=== PATIENT | male | born 1990 | race Caucasian/White ===

== ENCOUNTER 2021-07-27 01:57 | Emergency (ER) | payer BC, MEDICAID, OTHER ==
[~2021-07-27] VITALS: Ht 180.3 cm; Wt 86.4 kg
[~2021-07-27 01:57] MED LIST: HTN MED; IBUP-1984 PO
[2021-07-27 02:27] VITALS: BP 144/91
[2021-07-27] MEDS ORDERED: TETanus/Pertussis (Acell)/Diphther VAC/PF (Tdap-Adult) 0.5ml syringe IMVAC ONE (02:45)
[2021-07-27] MEDS ORDERED: LIDOcaine 1% 30ml preserv. free vial IJ ONE (03:15)
[2021-07-27] MEDS ORDERED: ibuprofen tablet 400 MG TABLET PO ONE (03:40)
[2021-07-27] MEDS ORDERED: HYDR-3965 PO (03:59)
== END 2021-07-27 05:15 | disposition home or self-care (01) ==
LOC: ER 01:57
DX: S01.111A Laceration without foreign body of right eyelid and periocular area, initial encounter (principal); S09.8XXA Other specified injuries of head, initial encounter; Z79.899 Other long term (current) drug therapy; Z72.89 Other problems related to lifestyle; W19.XXXA Unspecified fall, initial encounter; Y93.89 Activity, other specified; Y92.89 Other specified places as the place of occurrence of the external cause; Y99.8 Other external cause status
CPT/HCPCS: 12013; 70450; 70486; 72125; 90471; 90715; 99285

== ENCOUNTER 2021-07-30 14:57 | Emergency (ER) | payer BC ==
[~2021-07-30] VITALS: Ht 180.3 cm; Wt 92.6 kg
[~2021-07-30 14:57] MED LIST changes: +HYDR-3965 PO
[2021-07-30 15:35] VITALS: BP 163/98
[2021-07-30] MEDS ORDERED: ONDA4TAB6 PO (15:42)
== END 2021-07-30 15:53 | disposition home or self-care (01) ==
LOC: ER 14:57
DX: F07.81 Postconcussional syndrome (principal)
CPT/HCPCS: 99283

== ENCOUNTER 2021-08-03 10:02 | Emergency (ER) | payer BC ==
[~2021-08-03] VITALS: Ht 180.3 cm; Wt 76.5 kg
[~2021-08-03 10:02] MED LIST changes: +ONDA4TAB6 PO
[2021-08-03 10:29] VITALS: BP 126/84
[2021-08-03] MEDS ORDERED: ONDA4TAB6 PO (11:24)
== END 2021-08-03 11:27 | disposition home or self-care (01) ==
LOC: ER 10:03
DX: S01.111D Laceration without foreign body of right eyelid and periocular area, subsequent encounter (principal); Z48.00 Encounter for change or removal of nonsurgical wound dressing; X58.XXXD Exposure to other specified factors, subsequent encounter
CPT/HCPCS: 99283

== ENCOUNTER 2023-01-20 15:34 | Inpatient (IN) | payer BC ==
[~2023-01-20] VITALS: Ht 172.7 cm; Wt 121.7 kg
[~2023-01-20 15:34] MED LIST changes: -HYDR-3965 PO
[2023-01-20] MEDS ORDERED: levetiracetam inj 1,000 MG in normal saline 100ml IV soln 100 ML IV STA (15:54)
[2023-01-20] MEDS ORDERED: normal saline 1000ML IV soln IV ONE (15:55)
[2023-01-20] MEDS ORDERED: LORazepam 2 mg/ml vial IV ONE ×3 (15:55→17:55)
[2023-01-20] MEDS ORDERED: thiamine 100mg/ml 2ml inj. IV ONE (15:55)
[2023-01-20] MEDS ORDERED: folic acid 1mg/0.2ml inj IV ONE (15:55)
[2023-01-20] MEDS ORDERED: magnesium 2GM in 50ml NS 50 ML IV ONE (15:55)
[2023-01-20] MEDS ORDERED: cloNIDine 0.1 mg tablet PO ONE (16:10)
[2023-01-20 16:14] LABS: BASOPHILS # (AUTO) 0.1 X10'3 (0-0.2); BASOPHILS % (AUTO) 0.6 % (0-1); EOSINOPHILS % (AUTO) 0.1 % (0-6); HEMATOCRIT 51.2 % (42.0-52.0); HEMOGLOBIN 17.9 g/dl (14.0-17.9); LYMPHOCYTES # (AUTO) 0.6 X10'3 (1.1-4.8); LYMPHOCYTES % (AUTO) 7.2 % (21-51); MEAN CORPUSCULAR VOLUME 96.9 FL (78-98); MEAN PLATELET VOLUME 9.1 FL (7.4-10.4); MONOCYTES # (AUTO) 0.7 X10'3 (0-0.9); NEUTROPHILS # (AUTO) 6.9 X10'3 (1.8-7.7); NEUTROPHILS % (AUTO) 84.1 % (42-75); PLATELET COUNT 53 X10'3 (140-440); RED BLOOD COUNT 5.28 X10'6 (4.70-6.10); RED CELL DISTRIBUTION WIDTH 13.1 % (11.5-14.5); WHITE BLOOD COUNT 8.2 X10'3 (4.5-11.0)
[2023-01-20 16:34] LABS: ANION GAP 21 (8-16); BILIRUBIN,TOTAL 2.7 MG/DL (0.1-1.0); BLOOD UREA NITROGEN 5 MG/DL (7-18); BUN/CREATININE RATIO 3.9 (5.4-32.0); CALCIUM 9.7 MG/DL (8.5-10.1); CHLORIDE 84 MMOL/L (99-107); CREATININE 1.28 MG/DL (0.60-1.10); GLUCOSE 146 MG/DL (70-104); MAGNESIUM 1.4 MG/DL (1.5-2.4); POTASSIUM 3.1 MMOL/L (3.5-5.1); SODIUM 126 MMOL/L (135-145); TOTAL CARBON DIOXIDE 20.8 MMOL/L (24-32); eGFR 65 ML/MIN
[2023-01-20 16:35] LABS: ALANINE AMINOTRANSFERASE 87 U/L (12-78); ALKALINE PHOSPHATASE 118 IU/L (46-116); ASPARTATE AMINO TRANSFERASE 256 U/L (10-37); CREATINE KINASE 764 U/L (39-308); TOTAL PROTEIN 8.1 G/DL (6.4-8.2)
[2023-01-20] MEDS ORDERED: MELA1TAB52 PO (16:54)
[2023-01-20] MEDS ORDERED: IBUP-1985 PO (16:55)
[2023-01-20] MEDS ORDERED: ONDA4TAB12 PO (16:56)
[2023-01-20 16:57] LABS: ETHANOL < 0.010 GM/DL (0.0-0.010)
[2023-01-20] MEDS ORDERED: potassium CL 10mEq/100ml bag 100 ML IV SCH (17:05)
[2023-01-20] MEDS ORDERED: morphine 2 MG/ML inj. syringe IV PRN ×2 (17:55)
[2023-01-20] MEDS ORDERED: ondansetron/PF 4mg/2ml inj IV PRN (17:55)
[2023-01-20] MEDS ORDERED: cyclobenzaprine 10mg tablet PO PRN (17:55)
[2023-01-20] MEDS ORDERED: magnesium hydroxide 30ml (MOM) UD suspension PO PRN (17:55)
[2023-01-20] MEDS ORDERED: mag hydrox/Alum hydrox/simeth 30ml oral suspension PO PRN ×2 (17:55)
[2023-01-20] MEDS ORDERED: dextrose 50%-water 50ml dispensing syringe IV PRN (17:55)
[2023-01-20] MEDS ORDERED: acetaminophen 325mg tablet PO PRN ×2 (17:55)
[2023-01-20] MEDS ORDERED: dicyclomine 10 MG capsule PO PRN (17:55)
[2023-01-20] MEDS ORDERED: HYDROcodone/acetaminophen 5mg/325mg tablet PO PRN (17:55)
[2023-01-20] MEDS ORDERED: metoclopramide 5 mg/ml inj IV PRN (17:55)
[2023-01-20] MEDS ORDERED: HYDROcodone/acetaminophen 10/325mg tab PO PRN (17:55)
[2023-01-20] MEDS ORDERED: Potassium Cl 40 MEQ in sodium chloride 0.45% 500 ML IV ONE (18:05)
[2023-01-20 18:32] LABS: PHOSPHORUS 1.3 MG/DL (2.3-4.5)
--- NOTE | 2023-01-20 19:07 | NUR ---
[facility]. [phone]
--- NOTE | 2023-01-20 19:14 | NUR ---
[facility]. [phone]
[2023-01-20] MEDS: docusate sod 100mg capsule PO SCH (20:00)
[2023-01-20] MEDS: dextrose 5%-1/2 normal saline 1,000 ML IV SCH (20:50)
[2023-01-20] MEDS: thiamine 100mg/ml 2ml inj. IV SCH (21:37)
[2023-01-20] MEDS: LORazepam 2 mg/ml vial IV PRN (21:42)
--- NOTE | 2023-01-20 22:06 | NUR ---
spoke with patients mom and gave her update. pt fiance at bedside. Ativan given for anxiety. IVF infusing.
[2023-01-21] MEDS: LORazepam 2 mg/ml vial IV PRN ×2 (03:14→22:36)
--- NOTE | 2023-01-21 03:17 | NUR ---
Pt awake and feeling anxious. Ativan 2mg IV given. Pt states he is feeling better. Not sweating as much.
[2023-01-21 03:41] LABS: BASOPHILS % (AUTO) 0.8 % (0-1); EOSINOPHILS # (AUTO) 0.1 X10'3 (0-0.9); EOSINOPHILS % (AUTO) 1.2 % (0-6); HEMATOCRIT 40.2 % (42.0-52.0); HEMOGLOBIN 13.7 g/dl (14.0-17.9); LYMPHOCYTES # (AUTO) 0.6 X10'3 (1.1-4.8); MEAN CORPUSCULAR HEMOGLOBIN 33.3 PG (27.0-31.0); MEAN CORPUSCULAR HGB CONC 33.9 g/dL (33.0-36.5); MEAN PLATELET VOLUME 10.9 FL (7.4-10.4); MONOCYTES # (AUTO) 0.5 X10'3 (0-0.9); MONOCYTES % (AUTO) 9.3 % (2-12); NEUTROPHILS # (AUTO) 4.1 X10'3 (1.8-7.7); NEUTROPHILS % (AUTO) 76.7 % (42-75); PLATELET COUNT 52 X10'3 (140-440); RED BLOOD COUNT 4.11 X10'6 (4.70-6.10); RED CELL DISTRIBUTION WIDTH 13.3 % (11.5-14.5); WHITE BLOOD COUNT 5.4 X10'3 (4.5-11.0)
[2023-01-21 03:49] LABS: ALANINE AMINOTRANSFERASE 62 U/L (12-78); ALBUMIN 2.9 G/DL (3.4-5.0); ALBUMIN/GLOBULIN RATIO 0.9 (1.1-1.5); ALKALINE PHOSPHATASE 82 IU/L (46-116); ANION GAP 8 (8-16); ASPARTATE AMINO TRANSFERASE 156 U/L (10-37); BILIRUBIN,TOTAL 1.9 MG/DL (0.1-1.0); BLOOD UREA NITROGEN 5 MG/DL (7-18); BUN/CREATININE RATIO 7.8 (5.4-32.0); CALCIUM 8.1 MG/DL (8.5-10.1); CHLORIDE 98 MMOL/L (99-107); CREATININE 0.64 MG/DL (0.60-1.10); GLUCOSE 95 MG/DL (70-104); SODIUM 134 MMOL/L (135-145); TOTAL CARBON DIOXIDE 27.7 MMOL/L (24-32); TOTAL PROTEIN 6.1 G/DL (6.4-8.2); eGFR > 90 ML/MIN
[2023-01-21 03:53] LABS: POTASSIUM 2.9 MMOL/L (3.5-5.1)
[2023-01-21] MEDS: dextrose 5%-1/2 normal saline 1,000 ML IV SCH ×3 (03:55→23:55)
--- NOTE | 2023-01-21 04:00 | NUR ---
Critical potassium. Dr. Alexei cedeno.
[2023-01-21 04:15] LABS: PLATELET ESTIMATE DECREASED
[2023-01-21 04:17] LABS: LARGE PLATELETS FEW
--- NOTE | 2023-01-21 04:30 | NUR ---
Second page sent to Dr. Linda about the potassium level.
[2023-01-21] MEDS ORDERED: potassium Cl 20 mEq SR tablet PO PRN (04:40)
[2023-01-21] MEDS ORDERED: potassium Cl 40MEQ/1/2NS 520ml 520 ML IV PRN (04:40)
[2023-01-21] MEDS ORDERED: magnesium Cl slow-release 64mg tablet PO PRN (04:40)
[2023-01-21] MEDS ORDERED: magnesium 4gm in 100ml NS 100 ML IV PRN (04:40)
[2023-01-21] MEDS: potassium Cl 20 mEq SR tablet PO PRN (04:50)
--- NOTE | 2023-01-21 04:52 | NUR ---
Dr. Linda ordered Potassium replacement protocol. 40mEq potassium given PO.
[2023-01-21 06:14] LABS: MAGNESIUM 1.7 MG/DL (1.5-2.4)
--- NOTE | 2023-01-21 07:29 | NUR ---
pt lying in bed. pt's girlfriend at bedside. pt a+ox4. pt is forgetful and keeps removing o2 sat. pt compliant with request and follows commands. currently, denies itching, nausea, hallucinations, no tremors present
[2023-01-21] MEDS: thiamine 100mg/ml 2ml inj. IV SCH ×3 (07:46→20:26)
[2023-01-21] MEDS: docusate sod 100mg capsule PO SCH ×2 (08:00→20:00)
[2023-01-21] MEDS: folic acid 1mg/0.2ml inj IV SCH (09:23)
--- NOTE | 2023-01-21 09:33 | NUR ---
PT AMBUALTED WITH NURSING. PT VERY UNSTEADY WHILE WALKING. PT'S GIRLFRIEND ASKED TO GO WITH PT TO RESTROOM. PT'S GIRLFRIEND AGREES TO GO WITH PT.
[2023-01-21 18:51] VITALS: BP 155/104
[2023-01-21] MEDS: K and/or MAG REPLACEMENT MC SCH ×2 (20:00→20:24)
[2023-01-21] MEDS: Neutra Phos packet PO SCH (20:26)
[2023-01-21 21:16] LABS: CLARITY,URINE CLEAR (Clear); COLOR,URINE YELLOW (Yellow); GLUCOSE, URINE NEGATIVE (Neg); KETONES,URINE NEGATIVE (Neg); LEUKOCYTE ESTERASE ,URINE NEGATIVE (Neg); NITRITES, URINE NEGATIVE (Neg); OCCULT BLOOD,URINE TRACE-INTACT (Neg); PROTEIN,URINE NEGATIVE (Neg); UROBILINOGEN,URINE 0.2 E.U/dL (0.2-1.0)
[2023-01-21 21:22] LABS: UA COLLECTION TYPE CLN CATCH MIDSTREAM
[2023-01-21 21:23] LABS: URINE AMPHETAMINE SCREEN NEGATIVE (Neg); URINE BARBITUATE SCREEN NEGATIVE (Neg); URINE BENZODIAZEPINES SCREEN NEGATIVE (Neg); URINE COCAINE SCREEN NEGATIVE (Neg); URINE METHADONE SCREEN NEGATIVE (Neg); URINE OPIATE SCREEN NEGATIVE (Neg); URINE PHENCYCLIDINE SCREEN NEGATIVE (Neg)
[2023-01-21 21:27] LABS: RBC,URINE 0-2 /HPF (0-2); WBC,URINE 0-4 /HPF (0-4)
[2023-01-21 21:28] LABS: BACTERIA,URINE NONE SEEN /HPF (Neg); MUCUS STRANDS FEW /LPF (Neg); SQUAMOUS EPITHELIAL CELL,UR FEW /LPF (FEW)
[2023-01-21 22:00] VITALS: BP 149/95
[2023-01-22] VITALS (7 sets, daily range): BP systolic 141–155; BP diastolic 73–106
--- NOTE | 2023-01-22 00:15 | NUR ---
The bed alarm alarmed on pt's bed and I ran into his room and he was not trying to get out of bed; while I was trying to shut the alarm off his bed he woke up and turned onto his side by the upper bed rail and rolled off the bed to the floor onto his knees. I tried to stop him but he was to quick and rolled onto the floor; he was looking for his phone thinking that was alarming and he didn't understand it was his bed alarm. I assisted him back to bed and he almost fell again but this time I was able to get him onto the bed and i put the upper and lower bedrails up on the bed. Restarted the bedalarm and inspected for any injuries and did not note any.
[2023-01-22] MEDS: LORazepam 2 mg/ml vial IV PRN ×4 (00:46→21:50)
--- NOTE | 2023-01-22 01:00 | NUR ---
Joan MURRAY. Patient fell to knees with bed alarm alerting. Witnessed by studio operations engineer in charge. Did not hit head. BP 155/104, HR 104. Ativan given x2. Want anything for BP?
[2023-01-22] MEDS ORDERED: hydrALAZINE 25 MG tablet PO PRN (01:10)
[2023-01-22] MEDS: atenolol 25mg tablet PO SCH ×2 (01:32→08:26)
[2023-01-22] MEDS: haloperidol lactate 5mg/ml inj IM PRN (02:00)
--- NOTE | 2023-01-22 03:49 | NUR ---
called back soon after page: gave pt atenolol 25mg PO. also ordered hydralazine prn. RN stated patient fell to knees with intake counselor witness, head did not hit floor. Ativan given at 2236 and again at 0046. Security called around 0150 because patient became aggressive and not following staff instructions to stay in bed... Bed alarm was placed on patient beginning of shift. (CN was in room turning off bed alarm, patient then jumped quickly out of bed and hit knees to floor.)... Haldol given at 0200. Patient now resting comfortably. Will cont to monitor.
--- NOTE | 2023-01-22 06:07 | NUR ---
Problems reprioritized. Patient report given, questions answered & plan of care reviewed with LILIANE Cadet.
[2023-01-22 06:24] LABS: BASOPHILS # (AUTO) 0.1 X10'3 (0-0.2); BASOPHILS % (AUTO) 1.1 % (0-1); EOSINOPHILS # (AUTO) 0.1 X10'3 (0-0.9); EOSINOPHILS % (AUTO) 2.4 % (0-6); HEMATOCRIT 40.3 % (42.0-52.0); HEMOGLOBIN 13.3 g/dl (14.0-17.9); LYMPHOCYTES # (AUTO) 1.2 X10'3 (1.1-4.8); LYMPHOCYTES % (AUTO) 25.6 % (21-51); MEAN CORPUSCULAR HEMOGLOBIN 32.7 PG (27.0-31.0); MEAN CORPUSCULAR VOLUME 99.1 FL (78-98); MEAN PLATELET VOLUME 10.6 FL (7.4-10.4); MONOCYTES # (AUTO) 0.6 X10'3 (0-0.9); MONOCYTES % (AUTO) 11.7 % (2-12); NEUTROPHILS # (AUTO) 2.8 X10'3 (1.8-7.7); NEUTROPHILS % (AUTO) 59.2 % (42-75); PLATELET COUNT 61 X10'3 (140-440); RED BLOOD COUNT 4.07 X10'6 (4.70-6.10); RED CELL DISTRIBUTION WIDTH 13.5 % (11.5-14.5); WHITE BLOOD COUNT 4.8 X10'3 (4.5-11.0)
[2023-01-22 06:41] LABS: ALANINE AMINOTRANSFERASE 84 U/L (12-78); ALBUMIN 2.8 G/DL (3.4-5.0); ALBUMIN/GLOBULIN RATIO 0.9 (1.1-1.5); ALKALINE PHOSPHATASE 82 IU/L (46-116); ANION GAP 6 (8-16); ASPARTATE AMINO TRANSFERASE 237 U/L (10-37); BILIRUBIN,TOTAL 1.5 MG/DL (0.1-1.0); BLOOD UREA NITROGEN 3 MG/DL (7-18); BUN/CREATININE RATIO 4.8 (5.4-32.0); CALCIUM 8.7 MG/DL (8.5-10.1); CHLORIDE 103 MMOL/L (99-107); CREATININE 0.62 MG/DL (0.60-1.10); GLUCOSE 95 MG/DL (70-104); MAGNESIUM 1.5 MG/DL (1.5-2.4); SODIUM 138 MMOL/L (135-145); TOTAL CARBON DIOXIDE 28.9 MMOL/L (24-32); TOTAL PROTEIN 5.9 G/DL (6.4-8.2); eGFR > 90 ML/MIN
[2023-01-22 06:46] LABS: POTASSIUM 2.9 MMOL/L (3.5-5.1)
[2023-01-22] MEDS: docusate sod 100mg capsule PO SCH ×2 (08:00→19:27)
[2023-01-22] MEDS: thiamine 100mg/ml 2ml inj. IV SCH ×3 (08:24→19:25)
[2023-01-22] MEDS: potassium Cl 20 mEq SR tablet PO PRN ×3 (08:25→19:26)
[2023-01-22] MEDS: Neutra Phos packet PO SCH ×3 (08:26→19:26)
[2023-01-22] MEDS: folic acid 1mg/0.2ml inj IV SCH (08:38)
[2023-01-22] MEDS: K and/or MAG REPLACEMENT MC SCH ×2 (08:48→19:26)
[2023-01-22] MEDS: dextrose 5%-1/2 normal saline 1,000 ML IV SCH (09:55)
[2023-01-22 10:36] LABS: ETHANOL < 0.010 GM/DL (0.0-0.010)
--- NOTE | 2023-01-22 16:02 | NUR ---
Pt doing well this shift. Pt cooperative with care, ambulated around nursing station 3 times 1 person stand by assist. PT had BM this shift, continent of bladder. Girlfriend at beside most of day shift.
--- NOTE | 2023-01-22 18:19 | NUR ---
Problems reprioritized. Patient report given, questions answered & plan of care reviewed with lin rodgers.
[2023-01-22] MEDS ORDERED: loperamide 2mg capsule PO ONE (23:45)
[2023-01-23 02:00] VITALS: BP 145/90
[2023-01-23] MEDS: LORazepam 2 mg/ml vial IV PRN ×3 (05:06→22:55)
[2023-01-23] MEDS: haloperidol lactate 5mg/ml inj IM PRN (05:51)
[2023-01-23 06:21] LABS: BASOPHILS # (AUTO) 0.1 X10'3 (0-0.2); BASOPHILS % (AUTO) 1.6 % (0-1); EOSINOPHILS # (AUTO) 0.2 X10'3 (0-0.9); EOSINOPHILS % (AUTO) 3.2 % (0-6); HEMATOCRIT 40.8 % (42.0-52.0); LYMPHOCYTES # (AUTO) 1.3 X10'3 (1.1-4.8); LYMPHOCYTES % (AUTO) 24.5 % (21-51); MEAN CORPUSCULAR HEMOGLOBIN 33.9 PG (27.0-31.0); MEAN CORPUSCULAR HGB CONC 34.4 g/dL (33.0-36.5); MEAN CORPUSCULAR VOLUME 98.6 FL (78-98); MEAN PLATELET VOLUME 9.6 FL (7.4-10.4); MONOCYTES # (AUTO) 0.9 X10'3 (0-0.9); MONOCYTES % (AUTO) 16.9 % (2-12); NEUTROPHILS % (AUTO) 53.8 % (42-75); PLATELET COUNT 95 X10'3 (140-440); RED BLOOD COUNT 4.14 X10'6 (4.70-6.10); RED CELL DISTRIBUTION WIDTH 13.3 % (11.5-14.5); WHITE BLOOD COUNT 5.5 X10'3 (4.5-11.0)
--- NOTE | 2023-01-23 06:24 | NUR ---
Problems reprioritized. Patient report given, questions answered & plan of care reviewed with LILIANE Adams.
--- NOTE | 2023-01-23 06:30 | NUR ---
received report from ana maria eubanks
[2023-01-23 06:38] LABS: ANION GAP 10 (8-16); BLOOD UREA NITROGEN 2 MG/DL (7-18); BUN/CREATININE RATIO 3.2 (5.4-32.0); CALCIUM 9.4 MG/DL (8.5-10.1); CHLORIDE 101 MMOL/L (99-107); CREATININE 0.62 MG/DL (0.60-1.10); GLUCOSE 95 MG/DL (70-104); PHOSPHORUS 3.3 MG/DL (2.3-4.5); POTASSIUM 3.5 MMOL/L (3.5-5.1); SODIUM 137 MMOL/L (135-145); TOTAL CARBON DIOXIDE 25.9 MMOL/L (24-32); eGFR > 90 ML/MIN
[2023-01-23 06:39] LABS: ALANINE AMINOTRANSFERASE 105 U/L (12-78); ALBUMIN 3.3 G/DL (3.4-5.0); ALKALINE PHOSPHATASE 87 IU/L (46-116); ASPARTATE AMINO TRANSFERASE 269 U/L (10-37); BILIRUBIN,TOTAL 1.3 MG/DL (0.1-1.0); MAGNESIUM 1.2 MG/DL (1.5-2.4); TOTAL PROTEIN 6.7 G/DL (6.4-8.2)
[2023-01-23] MEDS: docusate sod 100mg capsule PO SCH ×2 (08:00→19:52)
[2023-01-23] MEDS: K and/or MAG REPLACEMENT MC SCH ×2 (08:00→19:51)
[2023-01-23] MEDS ORDERED: magnesium 2GM in 50ml NS 50 ML IV ONE (08:40)
[2023-01-23] MEDS: Neutra Phos packet PO SCH ×3 (08:42→20:01)
[2023-01-23] MEDS: atenolol 25mg tablet PO SCH (08:46)
[2023-01-23] MEDS: thiamine 100mg/ml 2ml inj. IV SCH ×2 (08:47→12:48)
[2023-01-23] MEDS: folic acid 1mg/0.2ml inj IV SCH (08:48)
--- NOTE | 2023-01-23 15:19 | NUR ---
pt is refusing to have his vitals done because he 'just wants to sleep' at this time
--- NOTE | 2023-01-23 18:15 | NUR ---
gave report to ana maria floyd
[2023-01-24 07:00] VITALS: BP 134/86
--- NOTE | 2023-01-24 07:03 | NUR ---
gave report to ana maria tadeo
--- NOTE | 2023-01-24 07:17 | NUR ---
Patient in room PCU 3028. I have received report from Angie MOMIN and had the opportunity to ask questions and assume patient care.
[2023-01-24 07:31] LABS: BASOPHILS # (AUTO) 0.1 X10'3 (0-0.2); EOSINOPHILS # (AUTO) 0.1 X10'3 (0-0.9); LYMPHOCYTES # (AUTO) 1.3 X10'3 (1.1-4.8); MEAN CORPUSCULAR VOLUME 99.7 FL (78-98); MONOCYTES # (AUTO) 1.1 X10'3 (0-0.9); WHITE BLOOD COUNT 4.8 X10'3 (4.5-11.0)
[2023-01-24 07:33] LABS: EOSINOPHILS % (AUTO) 1.9 % (0-6); HEMATOCRIT 40.3 % (42.0-52.0); HEMOGLOBIN 13.8 g/dl (14.0-17.9); LYMPHOCYTES % (AUTO) 27.7 % (21-51); MEAN CORPUSCULAR HEMOGLOBIN 34.2 PG (27.0-31.0); MEAN CORPUSCULAR HGB CONC 34.3 g/dL (33.0-36.5); MEAN PLATELET VOLUME 9.1 FL (7.4-10.4); MONOCYTES % (AUTO) 22.5 % (2-12); NEUTROPHILS # (AUTO) 2.2 X10'3 (1.8-7.7); NEUTROPHILS % (AUTO) 45.2 % (42-75); PLATELET COUNT 146 X10'3 (140-440); RED BLOOD COUNT 4.04 X10'6 (4.70-6.10); RED CELL DISTRIBUTION WIDTH 13.4 % (11.5-14.5)
[2023-01-24 07:38] LABS: ANION GAP 9 (8-16); BLOOD UREA NITROGEN 4 MG/DL (7-18); BUN/CREATININE RATIO 5.5 (5.4-32.0); CHLORIDE 101 MMOL/L (99-107); CREATININE 0.73 MG/DL (0.60-1.10); GLUCOSE 105 MG/DL (70-104); POTASSIUM 3.5 MMOL/L (3.5-5.1); SODIUM 137 MMOL/L (135-145); TOTAL CARBON DIOXIDE 27.4 MMOL/L (24-32)
[2023-01-24 07:39] LABS: ALANINE AMINOTRANSFERASE 123 U/L (12-78); ALBUMIN/GLOBULIN RATIO 0.9 (1.1-1.5); ALKALINE PHOSPHATASE 107 IU/L (46-116); ASPARTATE AMINO TRANSFERASE 239 U/L (10-37); BILIRUBIN,TOTAL 0.7 MG/DL (0.1-1.0); CALCIUM 8.9 MG/DL (8.5-10.1); MAGNESIUM 1.4 MG/DL (1.5-2.4); PHOSPHORUS 4.8 MG/DL (2.3-4.5); TOTAL PROTEIN 6.2 G/DL (6.4-8.2); eGFR > 90 ML/MIN
[2023-01-24] MEDS ORDERED: thiamine 100mg tablet PO SCH (08:00)
[2023-01-24] MEDS: K and/or MAG REPLACEMENT MC SCH (08:00)
[2023-01-24 08:07] LABS: BASOPHILS % (AUTO) 1.4 % (0-1)
--- NOTE | 2023-01-24 08:25 | NUR ---
Spoke to patient's mom and gave her a update on patient's labs and continued diet.
[2023-01-24] MEDS: Neutra Phos packet PO SCH ×2 (08:58→13:30)
[2023-01-24] MEDS: docusate sod 100mg capsule PO SCH (08:58)
[2023-01-24] MEDS: atenolol 25mg tablet PO SCH (08:59)
[2023-01-24] MEDS ORDERED: folic acid 1mg tablet PO ONE (09:00)
[2023-01-24] MEDS ORDERED: magnesium 4gm in 100ml NS 100 ML IV STA (09:32)
[2023-01-24] MEDS ORDERED: LORA-269 PO (09:39)
[2023-01-24] MEDS ORDERED: ATEN-168 PO (09:39)
[2023-01-24 13:33] VITALS: BP 145/100
--- NOTE | 2023-01-24 14:15 | NUR ---
Patient discharged home with all belongings and discharge instructions. IV removed and tele monitor removed and returned to telegraph repeater technician. Escorted out by nurse via wheel chair and left via private vehicle
[2023-01-25] MEDS ORDERED: folic acid 1mg tablet PO SCH (08:00)
== END 2023-01-24 14:11 | disposition home or self-care (01) | DRG 100 ==
LOC: ER 15:35 → ED HOLD 18:00 → PCU 3S 01-21 17:57
PROVIDERS: ADMIT Internal Medicine; ATTEND Internal Medicine
DX: G40.89 Other seizures (principal); N17.0 Acute kidney failure with tubular necrosis; E87.1 Hypo-osmolality and hyponatremia; E87.29 Other acidosis; Z68.41 Body mass index [BMI] 40.0-44.9, adult; F10.231 Alcohol dependence with withdrawal delirium; K70.10 Alcoholic hepatitis without ascites; D69.6 Thrombocytopenia, unspecified; R74.01 Elevation of levels of liver transaminase levels; S00.81XA Abrasion of other part of head, initial encounter; G93.0 Cerebral cysts; E66.01 Morbid (severe) obesity due to excess calories; W18.2XXA Fall in (into) shower or empty bathtub, initial encounter; E83.42 Hypomagnesemia; I10 Essential (primary) hypertension; R00.0 Tachycardia, unspecified; E86.0 Dehydration; E87.6 Hypokalemia; E83.39 Other disorders of phosphorus metabolism; Z83.3 Family history of diabetes mellitus; Y93.E1 Activity, personal bathing and showering; Y92.091 Bathroom in other non-institutional residence as the place of occurrence of the external cause; Y99.8 Other external cause status; Z79.899 Other long term (current) drug therapy
CPT/HCPCS: 36415; 70450; 80053; 80305; 80320; 81001; 82550; 83735; 84100; 85008; 85025; 87081; 93005; 96365; 96375; 97116; 97161; 97530; 99291; G0378; J1630; J1953; J2060; J3411; J3475; J3480; J3490; J7030; J7042

== ENCOUNTER 2023-06-18 17:47 | Emergency (ER) | payer BC ==
[~2023-06-18] VITALS: Ht 177.8 cm; Wt 87.0 kg
[~2023-06-18 17:47] MED LIST changes: +ATEN-168 PO; +GABA300C PO; -HTN MED; -IBUP-1984 PO; +LORA-269 PO; +MELA1TAB52 PO; +ONDA4TAB12 PO; -ONDA4TAB6 PO
[2023-06-18 19:02] LABS: BASOPHILS # (AUTO) 0.1 X10'3 (0-0.2); BASOPHILS % (AUTO) 1.5 % (0-1); EOSINOPHILS % (AUTO) 0.3 % (0-6); HEMATOCRIT 56.5 % (42.0-52.0); LYMPHOCYTES # (AUTO) 2.3 X10'3 (1.1-4.8); LYMPHOCYTES % (AUTO) 39.6 % (21-51); MEAN CORPUSCULAR HEMOGLOBIN 30.3 PG (27.0-31.0); MEAN CORPUSCULAR HGB CONC 33.5 g/dL (33.0-36.5); MEAN CORPUSCULAR VOLUME 90.5 FL (78-98); MEAN PLATELET VOLUME 8.2 FL (7.4-10.4); MONOCYTES # (AUTO) 0.4 X10'3 (0-0.9); MONOCYTES % (AUTO) 7.6 % (2-12); NEUTROPHILS # (AUTO) 2.9 X10'3 (1.8-7.7); PLATELET COUNT 424 X10'3 (140-440); RED BLOOD COUNT 6.24 X10'6 (4.70-6.10); RED CELL DISTRIBUTION WIDTH 17.1 % (11.5-14.5); WHITE BLOOD COUNT 5.8 X10'3 (4.5-11.0)
[2023-06-18 19:11] LABS: HEMOGLOBIN 18.9 g/dl (14.0-17.9)
[2023-06-18 19:13] LABS: ALANINE AMINOTRANSFERASE 262 U/L (12-78); ALBUMIN 4.1 G/DL (3.4-5.0); ALBUMIN/GLOBULIN RATIO 0.9 (1.1-1.5); ALKALINE PHOSPHATASE 102 IU/L (46-116); ANION GAP 14 (8-16); ASPARTATE AMINO TRANSFERASE 97 U/L (10-37); BILIRUBIN,TOTAL 0.3 MG/DL (0.1-1.0); BLOOD UREA NITROGEN 4 MG/DL (7-18); BUN/CREATININE RATIO 4.3 (10.0-20.0); CALCIUM 9.2 MG/DL (8.5-10.1); CHLORIDE 101 MMOL/L (99-107); CREATININE 0.93 MG/DL (0.60-1.10); GLUCOSE 130 MG/DL (70-104); LIPASE 53 U/L (73-393); POTASSIUM 3.5 MMOL/L (3.5-5.1); SODIUM 141 MMOL/L (135-145); TOTAL CARBON DIOXIDE 25.8 MMOL/L (24-32); TOTAL PROTEIN 8.9 G/DL (6.4-8.2); eGFR > 90 ML/MIN
[2023-06-18 20:46] VITALS: BP 143/106; PULSE 107; RESP 18; O2SAT 96
[2023-06-18 20:59] LABS: CLARITY,URINE CLEAR (Clear); COLOR,URINE YELLOW (Yellow); GLUCOSE, URINE NEGATIVE (Neg); KETONES,URINE NEGATIVE (Neg); LEUKOCYTE ESTERASE ,URINE NEGATIVE (Neg); NITRITES, URINE NEGATIVE (Neg); OCCULT BLOOD,URINE TRACE-INTACT (Neg); PROTEIN,URINE 100 mg/dl (Neg); UROBILINOGEN,URINE 0.2 E.U/dL (0.2-1.0)
[2023-06-18 21:06] LABS: UA COLLECTION TYPE CLN CATCH MIDSTREAM
[2023-06-18 21:09] LABS: BACTERIA,URINE NONE SEEN /HPF (Neg); HYALINE CASTS 0-3 /LPF (NEGATIVE); MUCUS STRANDS MANY /LPF (Neg); RBC,URINE 0-2 /HPF (0-2); SQUAMOUS EPITHELIAL CELL,UR FEW /LPF (FEW); WBC,URINE 0-4 /HPF (0-4)
[2023-06-18] MEDS ORDERED: diphenhydrAMINE 25mg capsule PO ONE (21:25)
== END 2023-06-18 21:32 | disposition home or self-care (01) ==
LOC: ER 17:48
DX: F10.10 Alcohol abuse, uncomplicated (principal); R11.0 Nausea; Z72.89 Other problems related to lifestyle; Z79.899 Other long term (current) drug therapy; Y90.9 Presence of alcohol in blood, level not specified
CPT/HCPCS: 36415; 80053; 81001; 83690; 85025; 99283

== ENCOUNTER 2023-11-07 20:08 | Inpatient (IN) | payer BC ==
[~2023-11-07] VITALS: Ht 177.8 cm; Wt 89.7 kg
[2023-11-07] MEDS ORDERED: normal saline 1000ML IV soln IVB ONE (20:40)
[2023-11-07] MEDS ORDERED: LORazepam 2 mg/ml vial IV ONE (20:40)
[2023-11-07] MEDS ORDERED: chlordiazePOXIDE 25mg capsule PO ONE (20:45)
[2023-11-07 20:50] LABS: BASOPHILS # (AUTO) 0.1 X10'3 (0-0.2); BASOPHILS % (AUTO) 0.6 % (0-1); EOSINOPHILS % (AUTO) 0.1 % (0-6); HEMATOCRIT 45.3 % (42.0-52.0); HEMOGLOBIN 15.8 g/dl (14.0-17.9); LYMPHOCYTES # (AUTO) 1.2 X10'3 (1.1-4.8); LYMPHOCYTES % (AUTO) 11.4 % (21-51); MEAN CORPUSCULAR HGB CONC 34.9 g/dL (33.0-36.5); MEAN CORPUSCULAR VOLUME 100.4 FL (78-98); MEAN PLATELET VOLUME 11.5 FL (7.4-10.4); MONOCYTES # (AUTO) 0.6 X10'3 (0-0.9); MONOCYTES % (AUTO) 5.2 % (2-12); NEUTROPHILS # (AUTO) 8.7 X10'3 (1.8-7.7); NEUTROPHILS % (AUTO) 82.7 % (42-75); PLATELET COUNT 98 X10'3 (140-440); RED BLOOD COUNT 4.52 X10'6 (4.70-6.10); RED CELL DISTRIBUTION WIDTH 15.8 % (11.5-14.5); WHITE BLOOD COUNT 10.5 X10'3 (4.5-11.0)
[2023-11-07] MEDS ORDERED: magnesium 2GM in 50ml NS 50 ML IV ONE (20:50)
[2023-11-07 21:16] LABS: ALANINE AMINOTRANSFERASE 106 U/L (12-78); ALBUMIN 3.4 G/DL (3.4-5.0); ALBUMIN/GLOBULIN RATIO 0.8 (1.1-1.5); ALKALINE PHOSPHATASE 125 IU/L (46-116); ANION GAP 18 (8-16); ASPARTATE AMINO TRANSFERASE 278 U/L (10-37); BILIRUBIN,TOTAL 4.2 MG/DL (0.1-1.0); BLOOD UREA NITROGEN 11 MG/DL (7-18); BUN/CREATININE RATIO 7.7 (10.0-20.0); CALCIUM 8.8 MG/DL (8.5-10.1); CHLORIDE 82 MMOL/L (99-107); CREATININE 1.43 MG/DL (0.60-1.10); GLUCOSE 128 MG/DL (70-104); PRO BRAIN NATRIURETIC PEPTIDE 112 PG/ML (0-125); SODIUM 128 MMOL/L (135-145); TOTAL CARBON DIOXIDE 27.9 MMOL/L (24-32); TOTAL PROTEIN 7.7 G/DL (6.4-8.2); eCRCL 75 ML/MIN; eGFR 57 ML/MIN
[2023-11-07] MEDS ORDERED: MIDAZolam 5mg/ml 2ml vial IV ONE (21:25)
[2023-11-07] MEDS ORDERED: potassium Cl 20 mEq SR tablet PO STA (21:51)
[2023-11-07 21:55] LABS: POTASSIUM 1.8 MMOL/L (3.5-5.1)
[2023-11-07] MEDS ORDERED: potassium Cl 40MEQ/1/2NS 520ml 520 ML IV ONE (21:55)
[2023-11-07] MEDS ORDERED: diltiazem 5mg/ml 5ml inj. IV ONE (22:15)
[2023-11-07] MEDS: diltiazem-NS 100mg/100ml 100 ML IV SCH (23:19)
[2023-11-07 23:38] LABS: LARGE PLATELETS FEW; NUCLEATED RED BLOOD CELLS 1 /100WBC (0-0); PLATELET ESTIMATE DECREASED; TOTAL CELLS COUNTED 100
[2023-11-08] VITALS (15 sets, daily range): BP systolic 107–151; BP diastolic 69–94; PULSE 101–122; RESP 12–27; TEMP 97.3–99; O2SAT 94–98
[2023-11-08 00:09] LABS: MAGNESIUM 1.4 MG/DL (1.5-2.4)
[2023-11-08 00:19] LABS: PHOSPHORUS 1.1 MG/DL (2.3-4.5)
[2023-11-08] MEDS ORDERED: ondansetron/PF 4mg/2ml inj IV PRN (01:35)
[2023-11-08] MEDS ORDERED: bisacodyl 10mg suppository rectal RC PRN (01:35)
[2023-11-08] MEDS ORDERED: diphenhydrAMINE 25mg capsule PO PRN (01:35)
[2023-11-08] MEDS ORDERED: diphenhydrAMINE 50 mg/ml inj IV PRN (01:35)
[2023-11-08] MEDS ORDERED: haloperidol 5mg tablet PO PRN (01:35)
[2023-11-08] MEDS ORDERED: mag hydrox/Alum hydrox/simeth 30ml oral suspension PO PRN (01:35)
[2023-11-08] MEDS ORDERED: potassium Cl 40MEQ/1/2NS 520ml 520 ML IV PRN (01:35)
[2023-11-08] MEDS ORDERED: magnesium 4gm in 100ml NS 100 ML IV PRN (01:35)
[2023-11-08] MEDS ORDERED: dextrose 50%-water 50ml dispensing syringe IV PRN (01:35)
[2023-11-08] MEDS ORDERED: HYDROmorphone inj. 0.5 MG/0.5 ML DISP.SYRIN IV PRN (01:35)
[2023-11-08] MEDS ORDERED: haloperidol lactate 5mg/ml inj IM PRN (01:35)
[2023-11-08] MEDS ORDERED: acetaminophen 650mg rectal suppository RC PRN (01:35)
[2023-11-08] MEDS ORDERED: acetaminophen 325mg tablet PO PRN (01:35)
[2023-11-08] MEDS ORDERED: HYDROcodone/acetaminophen 5mg/325mg tablet PO PRN (01:35)
[2023-11-08] MEDS ORDERED: magnesium 2GM in 50ml NS 50 ML IV PRN (01:35)
[2023-11-08] MEDS ORDERED: ondansetron 4mg rapidly disintigrating tab PO PRN (01:35)
[2023-11-08] MEDS ORDERED: magnesium hydroxide 30ml (MOM) UD suspension PO PRN (01:35)
[2023-11-08] MEDS ORDERED: sodium phosphate inj. 30 MMOL in dextrose 5%-water 250 ML IV PRN (01:40)
[2023-11-08] MEDS ORDERED: sodium phosphate inj. 15 MMOL in dextrose 5%-water 250 ML IV PRN (01:40)
[2023-11-08 02:05] LABS: HEMOGLOBIN A1C 5.3 % (4.5-6.2)
[2023-11-08 02:07] LABS: OSMOLALITY 269 MOSM/K (280-300)
[2023-11-08 02:12] LABS: APTT 26 SECONDS (22-32); D-DIMER 1.54 MG/L FEU (0-0.50); INR 1.2 INR; PROTHROMBIN TIME 12.4 SECONDS (9.0-12.0)
[2023-11-08 02:25] LABS: ETHANOL < 10 MG/DL (<10); LIPASE 48 U/L (16-77); MAGNESIUM 1.3 MG/DL (1.5-2.4); THYROID STIMULATING HORMONE 1.08 ulU/ml (0.34-4.50)
[2023-11-08 02:26] LABS: BILIRUBIN,URINE LARGE (Neg); CLARITY,URINE SLIGHTLY CLOUDY (Clear); COLOR,URINE ORANGE (Yellow); GLUCOSE, URINE 100 mg/dl (Neg); KETONES,URINE 15 mg/dl (Neg); OCCULT BLOOD,URINE TRACE-INTACT (Neg); PH,URINE 6.5 (4.8-8.0); PROTEIN,URINE >=300 mg/dl (Neg); URINE AMPHETAMINE SCREEN NEGATIVE (Neg); URINE BARBITUATE SCREEN NEGATIVE (Neg); URINE BENZODIAZEPINES SCREEN POSITIVE (Neg); URINE CANNABINOID SCREEN POSITIVE (Neg); URINE COCAINE SCREEN NEGATIVE (Neg); URINE METHADONE SCREEN NEGATIVE (Neg); URINE OPIATE SCREEN NEGATIVE (Neg); URINE PHENCYCLIDINE SCREEN NEGATIVE (Neg); UROBILINOGEN,URINE >=8.0 E.U/dL (0.2-1.0)
[2023-11-08 02:29] LABS: POTASSIUM 2.2 MMOL/L (3.5-5.1)
[2023-11-08 02:47] LABS: NITRITES, URINE NEGATIVE (Neg); UA COLLECTION TYPE NON-SPECIFIED
[2023-11-08 02:48] LABS: LEUKOCYTE ESTERASE ,URINE NEGATIVE (Neg)
[2023-11-08] MEDS: potassium Cl 20mEq in NS 1,000 ML IV SCH ×3 (02:50→18:15)
[2023-11-08 02:52] LABS: BACTERIA,URINE FEW /HPF (Neg); MUCUS STRANDS MODERATE /LPF (Neg); RBC,URINE 0-2 /HPF (0-2); SQUAMOUS EPITHELIAL CELL,UR FEW /LPF (FEW); TRANSITIONAL EPI CELLS,URINE FEW /HPF; WBC,URINE 0-4 /HPF (0-4)
[2023-11-08 02:54] LABS: AMORPHOUS URATES 1+; RENAL CELLS, URINE FEW /HPF
[2023-11-08] MEDS ORDERED: ondansetron/PF 4mg/2ml inj IV ONE (02:55)
[2023-11-08] MEDS ORDERED: morphine 4 MG/ML inj SYRINge IV ONE (02:55)
[2023-11-08] MEDS: morphine 2 MG/ML inj. syringe IV PRN ×4 (03:03→17:41)
[2023-11-08] MEDS ORDERED: propofol 10mg/ml 20ml vial IV ONE ×2 (03:30→03:55)
[2023-11-08] MEDS: docusate sod 100mg capsule PO SCH ×2 (08:00→19:41)
[2023-11-08] MEDS: K and/or MAG REPLACEMENT MC SCH ×2 (08:00→20:16)
[2023-11-08] MEDS: pantoprazole 40mg Tablet.DR PO SCH (08:13)
[2023-11-08] MEDS: thiamine 100mg/ml 2ml inj. IV SCH ×3 (08:13→19:41)
[2023-11-08 08:16] LABS: BASOPHILS % (AUTO) 0.4 % (0-1); EOSINOPHILS % (AUTO) 0.1 % (0-6); HEMATOCRIT 37.2 % (42.0-52.0); LYMPHOCYTES # (AUTO) 1.2 X10'3 (1.1-4.8); MEAN CORPUSCULAR HEMOGLOBIN 35.2 PG (27.0-31.0); MEAN CORPUSCULAR VOLUME 100.6 FL (78-98); MEAN PLATELET VOLUME 11.5 FL (7.4-10.4); MONOCYTES # (AUTO) 0.7 X10'3 (0-0.9); NEUTROPHILS % (AUTO) 78.5 % (42-75); PLATELET COUNT 77 X10'3 (140-440); RED CELL DISTRIBUTION WIDTH 15.8 % (11.5-14.5)
[2023-11-08 08:36] LABS: ALANINE AMINOTRANSFERASE 76 U/L (12-78); ALBUMIN 2.7 G/DL (3.4-5.0); ALBUMIN/GLOBULIN RATIO 0.8 (1.1-1.5); ALKALINE PHOSPHATASE 92 IU/L (46-116); ANION GAP 13 (8-16); ASPARTATE AMINO TRANSFERASE 195 U/L (10-37); BILIRUBIN,TOTAL 4.7 MG/DL (0.1-1.0); BLOOD UREA NITROGEN 9 MG/DL (7-18); BUN/CREATININE RATIO 8.3 (10.0-20.0); CALCIUM 7.8 MG/DL (8.5-10.1); CHLORIDE 92 MMOL/L (99-107); CREATININE 1.08 MG/DL (0.60-1.10); GLUCOSE 94 MG/DL (70-104); SODIUM 133 MMOL/L (135-145); TOTAL CARBON DIOXIDE 27.7 MMOL/L (24-32); TOTAL PROTEIN 6.1 G/DL (6.4-8.2); eCRCL 100 ML/MIN; eGFR 78 ML/MIN
[2023-11-08 08:37] LABS: POTASSIUM 2.2 MMOL/L (3.5-5.1)
[2023-11-08] MEDS: potassium Cl 20 mEq SR tablet PO PRN ×2 (08:53→13:54)
[2023-11-08] MEDS: HYDROcodone/acetaminophen 10/325mg tab PO PRN ×3 (09:31→19:42)
[2023-11-08] MEDS: diltiazem-NS 100mg/100ml 100 ML IV SCH (11:02)
[2023-11-08] MEDS: folic acid 1mg/0.2ml inj IV SCH (12:50)
[2023-11-08] MEDS: naltrexone 50mg tablet PO SCH (13:56)
[2023-11-08] MEDS: LORazepam 2 mg/ml vial IV PRN ×3 (20:16→23:02)
[2023-11-08] MEDS ORDERED: temazepam 15mg capsule PO PRN (21:00)
[2023-11-08] MEDS ORDERED: diazepam inj 5 MG/ML inj. IV ONE (21:05)
[2023-11-08] MEDS: diazepam inj 5 MG/ML inj. IV PRN ×2 (21:05→23:05)
[2023-11-09] VITALS (7 sets, daily range): BP systolic 142–174; BP diastolic 90–109; PULSE 96–137; RESP 12–29; TEMP 97.4–99; O2SAT 94–100
[2023-11-09] MEDS: diazepam inj 5 MG/ML inj. IV PRN ×2 (01:33→11:09)
[2023-11-09] MEDS: potassium Cl 20mEq in NS 1,000 ML IV SCH ×2 (02:35→10:55)
[2023-11-09] MEDS: K and/or MAG REPLACEMENT MC SCH ×2 (08:00→20:00)
[2023-11-09] MEDS: pantoprazole 40mg Tablet.DR PO SCH (09:39)
[2023-11-09] MEDS: HYDROcodone/acetaminophen 10/325mg tab PO PRN ×4 (09:39→23:07)
[2023-11-09] MEDS: naltrexone 50mg tablet PO SCH (09:39)
[2023-11-09] MEDS: thiamine 100mg/ml 2ml inj. IV SCH ×3 (09:40→21:12)
[2023-11-09] MEDS: folic acid 1mg/0.2ml inj IV SCH (09:40)
[2023-11-09] MEDS: NICOTINE POLACRILEX 2 MG LOZENGE BC PRN ×4 (09:40→20:21)
[2023-11-09] MEDS: docusate sod 100mg capsule PO SCH ×2 (09:40→20:00)
[2023-11-09] MEDS ORDERED: diltiazem 30mg tablet PO SCH ×2 (10:35→14:33)
[2023-11-09 11:51] LABS: BASOPHILS # (AUTO) 0.1 X10'3 (0-0.2); BASOPHILS % (AUTO) 1.4 % (0-1); EOSINOPHILS # (AUTO) 0.1 X10'3 (0-0.9); EOSINOPHILS % (AUTO) 1.5 % (0-6); HEMOGLOBIN 11.2 g/dl (14.0-17.9); LYMPHOCYTES # (AUTO) 0.6 X10'3 (1.1-4.8); LYMPHOCYTES % (AUTO) 12.9 % (21-51); MEAN CORPUSCULAR HEMOGLOBIN 35.5 PG (27.0-31.0); MEAN CORPUSCULAR HGB CONC 34.9 g/dL (33.0-36.5); MEAN CORPUSCULAR VOLUME 101.9 FL (78-98); MEAN PLATELET VOLUME 11.2 FL (7.4-10.4); MONOCYTES # (AUTO) 0.3 X10'3 (0-0.9); MONOCYTES % (AUTO) 6.5 % (2-12); NEUTROPHILS # (AUTO) 3.7 X10'3 (1.8-7.7); NEUTROPHILS % (AUTO) 77.7 % (42-75); PLATELET COUNT 78 X10'3 (140-440); RED BLOOD COUNT 3.14 X10'6 (4.70-6.10); RED CELL DISTRIBUTION WIDTH 15.2 % (11.5-14.5); WHITE BLOOD COUNT 4.7 X10'3 (4.5-11.0)
[2023-11-09 12:22] LABS: ALANINE AMINOTRANSFERASE 62 U/L (12-78); ALBUMIN 2.4 G/DL (3.4-5.0); ALKALINE PHOSPHATASE 71 IU/L (46-116); ANION GAP 5 (8-16); ASPARTATE AMINO TRANSFERASE 159 U/L (10-37); BILIRUBIN,TOTAL 4.2 MG/DL (0.1-1.0); BLOOD UREA NITROGEN 6 MG/DL (7-18); BUN/CREATININE RATIO 7.2 (10.0-20.0); CALCIUM 7.8 MG/DL (8.5-10.1); CHLORIDE 100 MMOL/L (99-107); CREATININE 0.83 MG/DL (0.60-1.10); GLUCOSE 126 MG/DL (70-104); HDL CHOLESTEROL 29 MG/DL (35-60); LDL CHOLESTEROL 50 MG/DL (50-100); MAGNESIUM 1.1 MG/DL (1.5-2.4); SODIUM 134 MMOL/L (135-145); eCRCL 129 ML/MIN; eGFR > 90 ML/MIN
[2023-11-09 12:30] LABS: ALBUMIN/GLOBULIN RATIO 0.8 (1.1-1.5); CHOL/HDL RATIO 4.1 (0.00-4.99); CHOLESTEROL 120 MG/DL (0-200); TOTAL PROTEIN 5.4 G/DL (6.4-8.2); TRIGLYCERIDES 85 MG/DL (20-135)
[2023-11-09 12:36] LABS: POTASSIUM 2.8 MMOL/L (3.5-5.1)
[2023-11-09] MEDS: potassium Cl 20 mEq SR tablet PO PRN ×3 (13:14→22:04)
[2023-11-09] MEDS: magnesium Cl slow-release 64mg tablet PO PRN (13:15)
[2023-11-09 13:22] LABS: LARGE PLATELETS FEW; PLATELET ESTIMATE DECREASED
[2023-11-09] MEDS: chlordiazePOXIDE 25mg capsule PO SCH ×2 (14:48→20:21)
[2023-11-09] MEDS: morphine 2 MG/ML inj. syringe IV PRN ×2 (14:49→20:26)
[2023-11-09] MEDS: diltiazem 30mg tablet PO SCH (23:05)
[2023-11-10] VITALS (8 sets, daily range): BP systolic 108–151; BP diastolic 62–100; PULSE 85–102; RESP 8–29; TEMP 97–98.3; O2SAT 93–99
[2023-11-10] MEDS: potassium Cl 20mEq in NS 1,000 ML IV SCH ×2 (00:40→12:24)
[2023-11-10] MEDS: morphine 2 MG/ML inj. syringe IV PRN ×2 (00:48→09:04)
[2023-11-10] MEDS: magnesium Cl slow-release 64mg tablet PO PRN ×3 (01:12→09:02)
[2023-11-10] MEDS ORDERED: LORazepam 2 mg/ml vial IV PRN (01:35)
[2023-11-10] MEDS: LORazepam 1 MG tablet PO PRN ×2 (02:53→17:35)
[2023-11-10] MEDS: chlordiazePOXIDE 25mg capsule PO SCH ×4 (02:53→19:51)
[2023-11-10] MEDS: NICOTINE POLACRILEX 2 MG LOZENGE BC PRN ×3 (02:53→21:44)
[2023-11-10 04:27] LABS: ALANINE AMINOTRANSFERASE 79 U/L (12-78); ALBUMIN 2.7 G/DL (3.4-5.0); ALBUMIN/GLOBULIN RATIO 0.8 (1.1-1.5); ALKALINE PHOSPHATASE 111 IU/L (46-116); ANION GAP 8 (8-16); ASPARTATE AMINO TRANSFERASE 228 U/L (10-37); BILIRUBIN,TOTAL 3.1 MG/DL (0.1-1.0); BLOOD UREA NITROGEN 3 MG/DL (7-18); BUN/CREATININE RATIO 3.7 (10.0-20.0); CALCIUM 8.2 MG/DL (8.5-10.1); CHLORIDE 99 MMOL/L (99-107); CREATININE 0.82 MG/DL (0.60-1.10); GLUCOSE 79 MG/DL (70-104); POTASSIUM 3.4 MMOL/L (3.5-5.1); SODIUM 134 MMOL/L (135-145); TOTAL CARBON DIOXIDE 27.5 MMOL/L (24-32); TOTAL PROTEIN 6.1 G/DL (6.4-8.2); eCRCL 131 ML/MIN; eGFR > 90 ML/MIN
[2023-11-10 04:29] LABS: MAGNESIUM 0.9 MG/DL (1.5-2.4); PHOSPHORUS 1.2 MG/DL (2.3-4.5)
[2023-11-10] MEDS: diltiazem 30mg tablet PO SCH (04:50)
[2023-11-10] MEDS: potassium Cl 20 mEq SR tablet PO PRN ×2 (04:51→09:03)
[2023-11-10] MEDS: HYDROcodone/acetaminophen 10/325mg tab PO PRN ×4 (04:54→22:25)
[2023-11-10] MEDS: K and/or MAG REPLACEMENT MC SCH ×2 (08:00→20:00)
[2023-11-10] MEDS: docusate sod 100mg capsule PO SCH ×2 (08:00→19:51)
[2023-11-10 08:27] LABS: BASOPHILS # (AUTO) 0.1 X10'3 (0-0.2); BASOPHILS % (AUTO) 1.6 % (0-1); EOSINOPHILS # (AUTO) 0.1 X10'3 (0-0.9); EOSINOPHILS % (AUTO) 2.4 % (0-6); HEMATOCRIT 34.1 % (42.0-52.0); HEMOGLOBIN 11.9 g/dl (14.0-17.9); LYMPHOCYTES # (AUTO) 1.4 X10'3 (1.1-4.8); LYMPHOCYTES % (AUTO) 28.6 % (21-51); MEAN CORPUSCULAR HGB CONC 34.8 g/dL (33.0-36.5); MEAN CORPUSCULAR VOLUME 103.6 FL (78-98); MEAN PLATELET VOLUME 10.2 FL (7.4-10.4); MONOCYTES # (AUTO) 0.5 X10'3 (0-0.9); MONOCYTES % (AUTO) 11.1 % (2-12); NEUTROPHILS # (AUTO) 2.8 X10'3 (1.8-7.7); NEUTROPHILS % (AUTO) 56.3 % (42-75); PLATELET COUNT 99 X10'3 (140-440); RED BLOOD COUNT 3.29 X10'6 (4.70-6.10); RED CELL DISTRIBUTION WIDTH 15.9 % (11.5-14.5); WHITE BLOOD COUNT 4.9 X10'3 (4.5-11.0)
[2023-11-10] MEDS: folic acid 1mg/0.2ml inj IV SCH (09:02)
[2023-11-10] MEDS: Neutra Phos packet PO PRN (09:02)
[2023-11-10] MEDS: thiamine 100mg/ml 2ml inj. IV SCH ×3 (09:02→21:44)
[2023-11-10] MEDS: naltrexone 50mg tablet PO SCH (09:03)
[2023-11-10] MEDS ORDERED: magnesium 4gm in 100ml NS 100 ML IV ONE (10:25)
[2023-11-10] MEDS ORDERED: atenolol 50mg tablet PO ONE (11:05)
[2023-11-10] MEDS: pantoprazole 40mg Tablet.DR PO SCH (11:09)
[2023-11-10] MEDS ORDERED: HYDR-3972 PO (14:50)
[2023-11-10] MEDS ORDERED: ATEN50TA41 PO (14:50)
[2023-11-10] MEDS ORDERED: DISU500T10 PO (14:50)
[2023-11-10] MEDS ORDERED: ONDA4TAB12 PO (14:50)
[2023-11-10] MEDS ORDERED: NALT50TA PO (14:50)
[2023-11-10] MEDS ORDERED: POTA-197 PO (14:56)
[2023-11-10] MEDS ORDERED: MAGN400T29 PO (14:56)
[2023-11-11] MEDS: morphine 2 MG/ML inj. syringe IV PRN (00:37)
[2023-11-11 02:00] VITALS: BP 130/85; PULSE 105; RESP 20; TEMP 97.8; O2SAT 97
[2023-11-11] MEDS: HYDROcodone/acetaminophen 10/325mg tab PO PRN (04:51)
[2023-11-11 07:14] VITALS: BP 129/89; PULSE 96; RESP 16; TEMP 98.2; O2SAT 99
[2023-11-11 08:00] VITALS: RESP 18
[2023-11-11] MEDS: docusate sod 100mg capsule PO SCH (08:00)
[2023-11-11] MEDS: K and/or MAG REPLACEMENT MC SCH (08:00)
[2023-11-11] MEDS ORDERED: chlordiazePOXIDE 25mg capsule PO SCH (08:00)
[2023-11-11] MEDS ORDERED: atenolol 50mg tablet PO SCH (08:00)
[2023-11-11 08:07] LABS: BASOPHILS # (AUTO) 0.1 X10'3 (0-0.2); BASOPHILS % (AUTO) 1.9 % (0-1); EOSINOPHILS # (AUTO) 0.1 X10'3 (0-0.9); EOSINOPHILS % (AUTO) 2.2 % (0-6); HEMOGLOBIN 10.4 g/dl (14.0-17.9); LYMPHOCYTES # (AUTO) 1.1 X10'3 (1.1-4.8); MEAN CORPUSCULAR HEMOGLOBIN 35.2 PG (27.0-31.0); MEAN CORPUSCULAR HGB CONC 33.6 g/dL (33.0-36.5); MEAN CORPUSCULAR VOLUME 104.7 FL (78-98); MEAN PLATELET VOLUME 9.1 FL (7.4-10.4); MONOCYTES # (AUTO) 0.8 X10'3 (0-0.9); MONOCYTES % (AUTO) 19.4 % (2-12); NEUTROPHILS # (AUTO) 2.2 X10'3 (1.8-7.7); NEUTROPHILS % (AUTO) 51.5 % (42-75); PLATELET COUNT 138 X10'3 (140-440); RED BLOOD COUNT 2.97 X10'6 (4.70-6.10); RED CELL DISTRIBUTION WIDTH 15.7 % (11.5-14.5); WHITE BLOOD COUNT 4.2 X10'3 (4.5-11.0)
[2023-11-11 08:25] LABS: ALANINE AMINOTRANSFERASE 92 U/L (12-78); ALBUMIN 2.4 G/DL (3.4-5.0); ALBUMIN/GLOBULIN RATIO 0.7 (1.1-1.5); ALKALINE PHOSPHATASE 111 IU/L (46-116); ANION GAP 5 (8-16); ASPARTATE AMINO TRANSFERASE 267 U/L (10-37); BLOOD UREA NITROGEN 3 MG/DL (7-18); BUN/CREATININE RATIO 3.8 (10.0-20.0); CALCIUM 8.4 MG/DL (8.5-10.1); CHLORIDE 105 MMOL/L (99-107); CREATININE 0.79 MG/DL (0.60-1.10); GLUCOSE 96 MG/DL (70-104); MAGNESIUM 1.2 MG/DL (1.5-2.4); POTASSIUM 3.7 MMOL/L (3.5-5.1); SODIUM 139 MMOL/L (135-145); TOTAL CARBON DIOXIDE 29.5 MMOL/L (24-32); TOTAL PROTEIN 5.7 G/DL (6.4-8.2); eCRCL 136 ML/MIN; eGFR > 90 ML/MIN
[2023-11-11] MEDS ORDERED: magnesium 2GM in 50ml NS 50 ML IV PRN (09:15)
[2023-11-11] MEDS ORDERED: potassium Cl 40MEQ/1/2NS 520ml 520 ML IV PRN (09:15)
[2023-11-11] MEDS ORDERED: magnesium 4gm in 100ml NS 100 ML IV PRN (09:15)
[2023-11-11] MEDS ORDERED: magnesium Cl slow-release 64mg tablet PO PRN (09:15)
[2023-11-11] MEDS ORDERED: potassium Cl 20 mEq SR tablet PO PRN ×2 (09:15)
[2023-11-11] MEDS: pantoprazole 40mg Tablet.DR PO SCH (09:23)
[2023-11-11] MEDS: naltrexone 50mg tablet PO SCH (09:24)
[2023-11-11 09:25] VITALS: BP_SYST 129; PULSE 96
[2023-11-11] MEDS: Neutra Phos packet PO PRN (09:25)
[2023-11-12] MEDS ORDERED: LORazepam 2 mg/ml vial IV PRN (01:35)
[2023-11-12] MEDS ORDERED: LORazepam 1 MG tablet PO PRN (01:35)
[2023-11-12] MEDS ORDERED: folic acid 1mg tablet PO SCH (08:00)
[2023-11-12] MEDS ORDERED: thiamine 100mg tablet PO SCH (08:00)
== END 2023-11-11 15:01 | disposition home or self-care (01) | DRG 100 ==
LOC: ER 20:09 → ED HOLD 11-08 01:40 → PCU 3S 11-08 05:45
PROVIDERS: ADMIT Family Medicine; ATTEND Family Medicine
PROC: 0RSKXZZ Reposition Left Shoulder Joint, External Approach (ICD-10-PCS; principal; 2023-11-07)
DX: G40.909 Epilepsy, unspecified, not intractable, without status epilepticus (principal); J96.01 Acute respiratory failure with hypoxia; N17.0 Acute kidney failure with tubular necrosis; E87.1 Hypo-osmolality and hyponatremia; I16.1 Hypertensive emergency; F10.139 Alcohol abuse with withdrawal, unspecified; D69.6 Thrombocytopenia, unspecified; E87.6 Hypokalemia; E83.39 Other disorders of phosphorus metabolism; I48.91 Unspecified atrial fibrillation; E83.42 Hypomagnesemia; R74.01 Elevation of levels of liver transaminase levels; N18.9 Chronic kidney disease, unspecified; I12.9 Hypertensive chronic kidney disease with stage 1 through stage 4 chronic kidney disease, or unspecified chronic kidney disease; K70.9 Alcoholic liver disease, unspecified; F17.210 Nicotine dependence, cigarettes, uncomplicated; S43.025A Posterior dislocation of left humerus, initial encounter; W18.39XA Other fall on same level, initial encounter; Y93.89 Activity, other specified; Y92.89 Other specified places as the place of occurrence of the external cause; Y99.8 Other external cause status; Z79.899 Other long term (current) drug therapy
CPT/HCPCS: 23650; 36415; 73030; 73060; 74176; 80053; 80061; 80305; 80320; 81001; 82948; 83036; 83605; 83690; 83735; 83880; 83930; 84100; 84132; 84443; 84484; 85007; 85008; 85025; 85379; 85610; 85730; 87040; 87081; 93005; 93308; 97116; 97161; 97530; 99291; 99292; A4565; A4620; A6258; A6449; G0378; J1200; J1630; J2060; J2250; J2270; J2405; J2704; J3360; J3411; J3475; J3480; J3490; J7030; J7040; J7060

== ENCOUNTER → 2023-11-28 | Outpatient (CLI) | payer BC, MEDICAID ==
[~2023-11-28] MED LIST changes: -ATEN-168 PO; +ATEN50TA41 PO; +DISU500T10 PO; -GABA300C PO; +HYDR-3972 PO; +MAGN400T29 PO; +NALT50TA PO; +POTA-197 PO
== END | disposition home or self-care (01) ==
LOC: RAD 12:01
PROVIDERS: ATTEND Specialist
DX: S43.022A Posterior subluxation of left humerus, initial encounter (principal); S44.32XA Injury of axillary nerve, left arm, initial encounter; M25.512 Pain in left shoulder; M89.312 Hypertrophy of bone, left shoulder; R60.0 Localized edema; X58.XXXA Exposure to other specified factors, initial encounter; Y93.89 Activity, other specified; Y92.89 Other specified places as the place of occurrence of the external cause; Y99.8 Other external cause status
CPT/HCPCS: 73200; 73221

== ENCOUNTER 2024-01-30 15:35 | Outpatient (CLI) | payer BC, MEDICAID | END 2024-01-30 23:59 | disposition home or self-care (01) | LOC: RAD 15:35 | PROVIDERS: ATTEND Specialist | DX: S43.022A Posterior subluxation of left humerus, initial encounter (principal); M25.812 Other specified joint disorders, left shoulder; M25.512 Pain in left shoulder; X58.XXXA Exposure to other specified factors, initial encounter; Y93.89 Activity, other specified; Y92.89 Other specified places as the place of occurrence of the external cause; Y99.8 Other external cause status | CPT/HCPCS: 73200 ==

== ENCOUNTER 2024-02-07 12:26 | Day surgery (SDC) | payer BC, MEDICAID ==
[2024-02-06 15:36] LABS: BILIRUBIN,URINE NEGATIVE (Neg); CLARITY,URINE CLEAR (Clear); COLOR,URINE YELLOW (Yellow); GLUCOSE, URINE NEGATIVE (Neg); KETONES,URINE NEGATIVE (Neg); LEUKOCYTE ESTERASE ,URINE NEGATIVE (Neg); NITRITES, URINE NEGATIVE (Neg); OCCULT BLOOD,URINE NEGATIVE (Neg); PROTEIN,URINE NEGATIVE (Neg); UROBILINOGEN,URINE 0.2 E.U/dL (0.2-1.0)
[2024-02-06 15:39] LABS: UA COLLECTION TYPE CLN CATCH MIDSTREAM
[2024-02-06 15:41] LABS: BASOPHILS % (AUTO) 0.5 % (0-1); EOSINOPHILS # (AUTO) 0.1 X10'3 (0-0.9); EOSINOPHILS % (AUTO) 1.3 % (0-6); LYMPHOCYTES # (AUTO) 1.9 X10'3 (1.1-4.8); LYMPHOCYTES % (AUTO) 21.1 % (21-51); MEAN CORPUSCULAR HEMOGLOBIN 31.5 PG (27.0-31.0); MEAN CORPUSCULAR HGB CONC 33.8 g/dL (33.0-36.5); MEAN CORPUSCULAR VOLUME 93.3 FL (78-98); MEAN PLATELET VOLUME 8.4 FL (7.4-10.4); MONOCYTES # (AUTO) 0.7 X10'3 (0-0.9); MONOCYTES % (AUTO) 7.3 % (2-12); NEUTROPHILS # (AUTO) 6.3 X10'3 (1.8-7.7); NEUTROPHILS % (AUTO) 69.8 % (42-75); PRE OP HEMATOCRIT 45.1 % (42.0-52.0); PRE OP HEMOGLOBIN 15.2 g/dL (14.0-17.9); PRE OP PLATELET COUNT 296 X10'3 (140-440); PRE OP WHITE BLOOD COUNT 9.1 10'3 (4.8-10.8); RED BLOOD COUNT 4.83 X10'6 (4.70-6.10); RED CELL DISTRIBUTION WIDTH 12.7 % (11.5-14.5)
[2024-02-06 15:49] LABS: PRE OP PROTIME 10.3 SECONDS (9.0-12.0)
[2024-02-06 15:53] LABS: ALBUMIN 3.4 G/DL (3.4-5.0); ALBUMIN/GLOBULIN RATIO 0.8 (1.1-1.5); ALKALINE PHOSPHATASE 73 IU/L (46-116); BLOOD UREA NITROGEN 12 MG/DL (7-18); BUN/CREATININE RATIO 14.6 (10.0-20.0); CALCIUM 9.4 MG/DL (8.5-10.1); CHLORIDE 106 MMOL/L (99-107); CREATININE 0.82 MG/DL (0.60-1.10); PRE OP ALT 14 U/L (30-65); PRE OP ANION GAP 11 (8-16); PRE OP AST 18 U/L (10-37); PRE OP BILIRUB, TOTAL 0.2 MG/DL (0.0-1.0); PRE OP GLUCOSE 99 MG/DL (70-104); PRE OP POTASSIUM 4.4 MMOL/L (3.4-5.1); PRE OP SODIUM 141 MMOL/L (135-145); TOTAL CARBON DIOXIDE 24.4 MMOL/L (24-32); TOTAL PROTEIN 7.9 G/DL (6.4-8.2); eGFR > 90 ML/MIN
[~2024-02-07] VITALS: Ht 177.8 cm; Wt 96.7 kg
[2024-02-07] VITALS (10 sets, daily range): BP systolic 122–136; BP diastolic 66–83; PULSE 75–92; RESP 13–16; TEMP 98.3; O2SAT 95–100
[2024-02-07] MEDS: cefazolin 2gm/D5W 100mL 100 ML IV ONE (06:35)
[2024-02-07] MEDS: tranexamic acid inj. 1,000 MG in normal saline IV soln 100ML IV ONE (06:36)
[~2024-02-07 12:26] MED LIST changes: +DIPH25CA51 PO; -DISU500T10 PO; +HYDR-3965 PO; -HYDR-3972 PO; +IBUPROFEN PO; -LORA-269 PO; -MAGN400T29 PO; -MELA1TAB52 PO; -NALT50TA PO; -ONDA4TAB12 PO; -POTA-197 PO
[2024-02-07] MEDS ORDERED: methylene blue (5mg/ml) 50mg/10ml ampul IV ONE (12:31)
[2024-02-07] MEDS: famotidine 20mg tablet PO ONE (12:45)
[2024-02-07] MEDS: ringers solution, lacted 1,000 ML IV SCH (12:45)
[2024-02-07] MEDS ORDERED: ATEN50TA8 PO (12:52)
[2024-02-07] MEDS ORDERED: proCHLORperazine 10 MG/2 ml inj IV PRN (13:00)
[2024-02-07] MEDS ORDERED: ringers solution, lacted 1,000 ML IV SCH (13:00)
[2024-02-07] MEDS ORDERED: morphine 4 MG/ML inj SYRINge IV PRN (13:00)
[2024-02-07] MEDS ORDERED: labetalol 20mg/4ml (5mg/ml) syringe IV PRN (13:00)
[2024-02-07] MEDS ORDERED: morphine 2 MG/ML inj. syringe IV PRN (13:00)
[2024-02-07] MEDS ORDERED: ondansetron/PF 4mg/2ml inj IV PRN (13:00)
[2024-02-07] MEDS ORDERED: enalaprilat dihydrate 2.5mg/2ml vial IV PRN (13:00)
[2024-02-07] MEDS ORDERED: meperidine/PF 25mg/ml syringe IV PRN ×3 (13:00)
[2024-02-07] MEDS ORDERED: sevoflurane 250ml liquid IH ONE (13:40)
[2024-02-07] MEDS ORDERED: fentaNYL/PF 50MCG/1 ML 2ML syringe ONE (13:44)
[2024-02-07] MEDS ORDERED: midazolam 1 mg/ML 2ml injection ONE (13:44)
[2024-02-07] MEDS ORDERED: rocuronium 10mg/ml inj IV ONE ×2 (14:11→16:41)
[2024-02-07] MEDS ORDERED: propofol inj 20 ML IV ONE (14:11)
[2024-02-07] MEDS ORDERED: dexamethasone sod phosphate 4mg/ml inj. ONE (14:11)
[2024-02-07] MEDS: vancomycin 1,000mg inj ONE (14:39)
[2024-02-07] MEDS: methylene blue (5mg/ml) 50mg/10ml ampul IV ONE (15:46)
[2024-02-07] MEDS ORDERED: meperidine/PF 25mg/ml syringe ONE (16:44)
[2024-02-07] MEDS: ceFAZolin/D5W- 1GM premix 50 ML IV ONE (17:29)
[2024-02-07] MEDS: HYDROcodone/acetaminophen 5mg/325mg tablet PO ONE (18:14)
== END 2024-02-07 18:20 | disposition home or self-care (01) ==
LOC: PAS 12:26
PROVIDERS: ATTEND Specialist
DX: M24.412 Recurrent dislocation, left shoulder (principal); S42.292A Other displaced fracture of upper end of left humerus, initial encounter for closed fracture; S46.012A Strain of muscle(s) and tendon(s) of the rotator cuff of left shoulder, initial encounter; I10 Essential (primary) hypertension; G40.89 Other seizures; F10.239 Alcohol dependence with withdrawal, unspecified; G89.18 Other acute postprocedural pain; Z87.891 Personal history of nicotine dependence; Z79.899 Other long term (current) drug therapy; X58.XXXA Exposure to other specified factors, initial encounter; Y93.89 Activity, other specified; Y92.89 Other specified places as the place of occurrence of the external cause; Y99.8 Other external cause status
CPT/HCPCS: 23470; 36415; 64415; 73030; 80053; 81003; 82948; 85025; 85610; 85730; 86885; 86900; 86901; 87081; 93005; C1713; C1776; J0690; J1100; J2175; J2250; J2405; J2704; J3010; J3370; J3490; J7030; J7120; Q9968; Z7506; Z7508; Z7512; 76000; A4618; A6449; A6455; A7000

== ENCOUNTER 2024-08-04 18:42 | Emergency (ER) | payer BC, MEDICAID ==
[~2024-08-04] VITALS: Ht 177.8 cm; Wt 87.7 kg
[~2024-08-04 18:42] MED LIST changes: -ATEN50TA41 PO; +ATEN50TA8 PO
== END 2024-08-04 20:31 | disposition home or self-care (01) ==
LOC: ER 18:43
DX: H69.92 Unspecified Eustachian tube disorder, left ear (principal); J31.0 Chronic rhinitis; F10.90 Alcohol use, unspecified, uncomplicated; Z20.822 Contact with and (suspected) exposure to COVID-19; Z79.899 Other long term (current) drug therapy
CPT/HCPCS: 36415; 87811; 99283